=== PATIENT | female | born 2000 | race Caucasian/White ===

== ENCOUNTER 2021-03-12 18:45 | Emergency (ER) | payer OTHER ==
[2021-03-12] MEDS ORDERED: NAPROXEN500 MG PO (22:18)
[2021-03-12] MEDS ORDERED: BACLOFEN 10MG T10 MG PO (22:18)
== END 2021-03-12 22:33 | disposition home or self-care (01) ==
LOC: FER 18:45
DX: M54.2 Cervicalgia (principal); R51.9 Headache, unspecified; V43.52XA Car driver injured in collision with other type car in traffic accident, initial encounter; Y92.410 Unspecified street and highway as the place of occurrence of the external cause
CPT/HCPCS: 72040